=== PATIENT | female | born 1945 | race Caucasian/White ===

== ENCOUNTER → 2022-05-29 | Day surgery (SDC) | payer MEDICARE, OTHER ==
[~2022-05-29] VITALS: Ht 154.9 cm; Wt 71.7 kg
[~2022-05-29] MED LIST: ACETAMINOPHEN325 MG PO; ALEVE220 MG PO; ASPIRIN CHEWABL81 MG PO; ATORVASTATIN CA10 MG PO; COLACE100 MG PO; COLON HERBAL C1 EACH PO; FEOSOL325 MG PO; LAXATIVE OF CHOICE; PERCOCET 5/3251 TAB PO; PRILOSEC20 MG PO; SYNTHROID100 MCG PO
== END | disposition home or self-care (01) ==
LOC: FAS 06:22
DX: D12.0 Benign neoplasm of cecum (principal); D12.4 Benign neoplasm of descending colon; D12.3 Benign neoplasm of transverse colon; K62.1 Rectal polyp; K63.89 Other specified diseases of intestine; E03.9 Hypothyroidism, unspecified; E78.00 Pure hypercholesterolemia, unspecified; Z87.891 Personal history of nicotine dependence; Z88.0 Allergy status to penicillin; Z88.8 Allergy status to other drugs, medicaments and biological substances
CPT/HCPCS: J2704; J7120